=== PATIENT | male | born 1985 | race Caucasian/White ===

== ENCOUNTER 2022-03-13 23:36 | Inpatient (IN) | payer OTHER, SELFPAY ==
--- NOTE | 2022-03-13 | ECG_ITS ---
Test Reason : chest pain Blood Pressure : / mmHG Vent. Rate : 063 BPM Atrial Rate : 063 BPM P-R Int : 136 ms QRS Dur : 100 ms QT Int : 402 ms P-R-T Axes : 071 081 072 degrees QTc Int : 411 ms Normal sinus rhythm Normal ECG When compared with ECG of 08-MAY-2020 13:01, No significant change was found Referred By: Generic ED Physician Electronically Signed By:MORIAH YU
--- NOTE | ~2022-03-13 | CT_ITS ---
EXAMINATION: CT ABDOMEN AND PELVIS WITH CONTRAST COMPARISON: CT abdomen pelvis without contrast 03/14/2022 at 1:13 AM CLINICAL INDICATION: Intussusception TECHNIQUE: Multidetector volumetric images were obtained from the superior aspect of the liver through the pubic symphysis following administration 85 mL of Omnipaque 350 intravenous contrast. Sagittal and coronal reformatted images were obtained on the technologist's workstation. Oral contrast: No This CT examination was performed using dose optimization techniques as appropriate, variously including the following: *Automated exposure control *Adjustment of mA and/or kV according to patient size (this includes techniques or standardized protocols for targeted exams where dose is matched to indication/reason for exam; i.e. extremities or head) *Use of iterative reconstruction technique DLP: 446 mGy-cm FINDINGS: LUNG BASES: The visualized lung bases are unremarkable. LIVER, GALLBLADDER, AND BILIARY TREE: The liver is normal in size, shape, and attenuation. No focal hepatic lesion or biliary ductal dilatation is present. The gallbladder is unremarkable with no evidence of radiopaque gallstones, gallbladder wall thickening, or obvious pericholecystic inflammatory changes. PANCREAS: Unremarkable. SPLEEN: Unremarkable. ADRENAL GLANDS: Unremarkable. KIDNEYS AND URETERS: The kidneys are normal in size, shape, and attenuation. No hydronephrosis, hydroureter, or calculi seen. No perinephric stranding. BLADDER: Unremarkable. GASTROINTESTINAL TRACT: The small and large bowel are unremarkable. The is no evidence of appendicitis. ABDOMINAL WALL: No significant hernia is appreciated. There is a tiny left inguinal hernia containing only fat. LYMPH NODES: No retroperitoneal lymphadenopathy. VASCULAR: Unremarkable. PELVIC VISCERA: Unremarkable. OSSEOUS STRUCTURES: Unremarkable. CT/CT abdomen pelvis w con IMPRESSION: No evidence of an intussusception or bowel obstruction. Fleischner guidelines were followed.
--- NOTE | ~2022-03-13 | CT_ITS ---
EXAMINATION: CT ABDOMEN AND PELVIS WITHOUT CONTRAST CLINICAL INFORMATION: Left upper abdominal pain COMPARISON: None TECHNIQUE: Multidetector volumetric imaging was performed from the superior aspect of the liver through the pubic symphysis. Sagittal and coronal reformatted images were obtained on the technologist's workstation. This CT examination was performed using dose optimization techniques as appropriate, variously including the following: *Automated exposure control *Adjustment of mA and/or kV according to patient size (this includes techniques or standardized protocols for targeted exams where dose is matched to indication/reason for exam; i.e. extremities or head) *Use of iterative reconstruction technique DLP: 445 mGy-cm FINDINGS: LUNG BASES: The visualized lung bases are unremarkable. LIVER, GALLBLADDER, AND BILIARY TREE: The liver is normal in size, shape, and attenuation. No focal hepatic lesion or biliary ductal dilatation is present. The gallbladder is unremarkable with no evidence of radiopaque gallstones, gallbladder wall thickening, or obvious pericholecystic inflammatory changes. PANCREAS: Unremarkable. SPLEEN: Lobulated contour of the spleen which is normal in size. ADRENAL GLANDS: Unremarkable. KIDNEYS AND URETERS: The kidneys are normal in size, shape, and attenuation. No hydronephrosis, hydroureter, or calculi seen. No perinephric stranding. BLADDER: Partially distended without wall thickening or focal abnormality. GASTROINTESTINAL TRACT: The stomach is unremarkable. Normal caliber of the small bowel. No obstruction. Possible small bowel small bowel intussusception in the left midabdomen. Lack of IV contrast and oral contrast limits this evaluation. Normal appendix. No colonic wall thickening or inflammatory change. No free air or free fluid. ABDOMINAL WALL: No significant hernia is appreciated. LYMPH NODES: Normal. VASCULAR: Unremarkable. PELVIC VISCERA: The prostate and seminal vesicles are unremarkable. OSSEOUS STRUCTURES: No acute or suspicious osseous abnormality. CT/CT abdomen pelvis wo con IMPRESSION: Questionable small bowel small bowel intussusception in the left midabdomen. No obstruction. No inflammatory changes. Fleischner guidelines were followed.
[2022-03-13 23:43] VITALS: BP 111/69; PULSE 79; RESP 16; TEMP 36.8; O2SAT 97; BMI 23.0
[2022-03-13 23:59] LABS: Basophils Percent Auto 0.4 % (0-2); Eosinophils Absolute Auto 0.2 X10*3/uL (0.0-0.4); Hematocrit 38.6 % (42.0-52.0); Hemoglobin 13.5 g/dl (14.0-18.0); Imm Gran Abs Auto 0.02 X10*3/uL (0.00-0.03); Imm Gran Pct Auto 0.2 % (0.0-0.4); Lymphocytes Absolute Auto 2.8 X10*3/uL (1.2-4.9); Lymphocytes Percent Auto 26.9 % (20-40); MANUAL DIFF FLAG NO; Mean Corpuscular Hemoglobin 30.3 pg (27.0-33.0); Mean Corpuscular Volume 86.5 fL (80.0-98.0); Mean Platelet Volume 10.5 fL (9.4-12.4); Monocytes Absolute Auto 0.7 X10*3/uL (0.1-1.2); Neutrophils Absolute Auto 6.6 x10*3/uL (2.0-8.3); Neutrophils Percent Auto 63.5 % (45-73); Platelet Count 233 X10*3/uL (160-400); Red Blood Count 4.46 X10*6/uL (4.60-5.80); Red Cell Distribution Width 12.2 % (11.0-16.0); White Blood Count 10.4 X10*3/uL (4.8-10.8)
[2022-03-14 00:19] LABS: Alanine Aminotransferase 19 U/L (0-40); Albumin Level 4.5 g/dL (3.5-5.0); Alkaline Phosphatase 49 U/L (39-117); Anion Gap 13 (12-20); Aspartate Amino Transferase 21 U/L (5-37); Bilirubin Total 0.5 mg/dL (0.0-1.0); Blood Urea Nitrogen 11 mg/dL (9-16); Calcium 9.2 mg/dL (8.4-10.2); Carbon Dioxide 24 mmol/L (22-29); Chloride 105 mmol/L (96-108); Estimated Glomerular Filt Rate > 60; Glucose Random 84 mg/dL (60-115); Sodium 138 mmol/L (135-145); Total Protein 6.7 g/dL (6.5-8.0)
[2022-03-14 00:25] LABS: Troponin-I High Sensitivity < 3.5 ng/L (<3.5-35.0)
--- NOTE | 2022-03-14 00:29 | ED_ITS ---
HPI - Chest Pain General Chief Complaint: Chest Pain Stated Complaint: chest pain Time Seen by Provider: 03/14/22 00:29 Source: patient Mode of arrival: ambulatory Limitations: no limitations History of Present Illness HPI narrative: Patient with healthy with history of ADHD was playing golf today, no chest pain or palpitation came home rested around 06:00 o'clock noticed pain in the interscapular area in left upper abdominal area and of deep dull pain no relation with breathing or movements no urinary complaints no history of kidney stone patient had normal bowels no nausea no vomiting Related Data Allergies Allergy/AdvReac Type Severity Reaction Status Date / Time No Known Allergies Allergy Unverified 06/03/20 16:33 [No Known Allergies*] Review of Systems Review of Systems: Yes all other systems are reviewed and are negative [facility] Social History Social History Advance Directives: No Physical Exam Vital Signs: Vital Signs: Last Vital Signs Temp 98.3 F 03/13/22 23:43 Pulse 79 03/13/22 23:43 Resp 16 03/13/22 23:43 BP 111/69 03/13/22 23:43 Pulse Ox 97 03/13/22 23:43 O2 Del Method 03/13/22 23:43 BMI result Body Mass Index 23.0 Appearance: Alert. Oriented X3. No acute distress. Eyes: PERRLA, No Nystagmus ENT: Pharynx normal. Oral Mucosa moist Neck: Normal inspection. Neck supple. CVS: Normal heart rate and rhythm. Pulses normal. Respiratory: No respiratory distress. Equal air entry bilateral, no wheezing/rales/rhonchi Abdomen: Soft, tender to touch and left upper quadrant no rebound tenderness + guarding Bowel sounds are present, no mass palpable, no CVA tenderness Skin: Skin warm and dry. Normal skin color. Normal skin turgor. Extremities: No lower extremity edema. No calf tenderness Neuro: Oriented X 3. No motor deficit. MDM - Chest Pain MDM Narrative Medical decision making narrative: Patient pain likely muscular will check the UA CT scan of the abdomen to rule out any nephrolithiasis patient is right-handed but this mostly pain is on the left side 150am: CT scan shows intussusception in the left upper quadrant small bowel to small bowel. Will call surgeon for admission at this time patient is not throwing up and not nauseated Case discussed with Dr. Mccoy will admit for observation Differential Diagnosis Differential diagnosis: Likely pneumothorax and stable angina Lab Data Attestation: I reviewed the patient's lab results. Result diagrams: 03/13/22 23:55 03/13/22 23:55 Labs: Lab Results 03/13/22 03/13/22 03/13/22 Range/Units 23:55 23:55 23:55 WBC 10.4 (4.8-10.8) X10*3/uL RBC 4.46 L (4.60-5.80) X10*6/uL Hgb 13.5 L (14.0-18.0) g/dl Hct 38.6 L (42.0-52.0) % MCV 86.5 (80.0-98.0) fL MCH 30.3 (27.0-33.0) pg MCHC 35.0 (31.0-36.0) g/dl RDW 12.2 (11.0-16.0) % Plt Count 233 (160-400) X10*3/uL MPV 10.5 (9.4-12.4) fL Immature Gran % (Auto) 0.2 (0.0-0.4) % Neut % (Auto) 63.5 (45-73) % Lymph % (Auto) 26.9 (20-40) % [place] % (Auto) 7.0 (2-11) % Eos % (Auto) 2.0 (0-4) % Baso % (Auto) 0.4 (0-2) % Lymph # (Auto) 2.8 (1.2-4.9) X10*3/uL [place] # (Auto) 0.7 (0.1-1.2) X10*3/uL Eos # (Auto) 0.2 (0.0-0.4) X10*3/uL Baso # (Auto) 0.0 (0.0-0.2) X10*3/uL Abs Immat Gran (auto) 0.02 (0.00-0.03) X10*3/uL Absolute Neuts (auto) 6.6 (2.0-8.3) x10*3/uL Absolute Nucleated RBC 0.000 (0.0-0.012) X10*3/uL Nucleated RBC % (auto) 0.0 (0.0-0.2) /100WBC Sodium 138 (135-145) mmol/L Potassium 4.0 (3.3-5.1) mmol/L Chloride 105 (96-108) mmol/L Carbon Dioxide 24 (22-29) mmol/L Anion Gap 13 (12-20) BUN 11 (9-16) mg/dL Creatinine 1.05 (0.5-1.4) mg/dL Estim Creat Clear Calc 107.0 Estimated GFR > 60 Random Glucose 84 (60-115) mg/dL Calcium 9.2 (8.4-10.2) mg/dL Total Bilirubin 0.5 (0.0-1.0) mg/dL AST 21 (5-37) U/L ALT 19 (0-40) U/L Alkaline Phosphatase 49 (39-117) U/L Troponin I High Sens < 3.5 (<3.5-35.0) ng/L Total Protein 6.7 (6.5-8.0) g/dL Albumin 4.5 (3.5-5.0) g/dL Urine Color Urine Appearance Urine pH (5.0-8.0) Ur Specific [place] (1.005-1.025) Urine Protein (NEG-TRACE) MG/DL Urine Glucose (UA) (NEG) MG/DL Urine Ketones (NEG) MG/DL Urine Blood (NEG) Urine Nitrite (NEG) Ur Leukocyte Esterase (NEG) 03/14/22 Range/Units 01:07 WBC (4.8-10.8) X10*3/uL RBC (4.60-5.80) X10*6/uL Hgb (14.0-18.0) g/dl Hct (42.0-52.0) % MCV (80.0-98.0) fL MCH (27.0-33.0) pg MCHC (31.0-36.0) g/dl RDW (11.0-16.0) % Plt Count (160-400) X10*3/uL MPV (9.4-12.4) fL Immature Gran % (Auto) (0.0-0.4) % Neut % (Auto) (45-73) % Lymph % (Auto) (20-40) % [place] % (Auto) (2-11) % Eos % (Auto) (0-4) % Baso % (Auto) (0-2) % Lymph # (Auto) (1.2-4.9) X10*3/uL [place] # (Auto) (0.1-1.2) X10*3/uL Eos # (Auto) (0.0-0.4) X10*3/uL Baso # (Auto) (0.0-0.2) X10*3/uL Abs Immat Gran (auto) (0.00-0.03) X10*3/uL Absolute Neuts (auto) (2.0-8.3) x10*3/uL Absolute Nucleated RBC (0.0-0.012) X10*3/uL Nucleated RBC % (auto) (0.0-0.2) /100WBC Sodium (135-145) mmol/L Potassium (3.3-5.1) mmol/L Chloride (96-108) mmol/L Carbon Dioxide (22-29) mmol/L Anion Gap (12-20) BUN (9-16) mg/dL Creatinine (0.5-1.4) mg/dL Estim Creat Clear Calc Estimated GFR Random Glucose (60-115) mg/dL Calcium (8.4-10.2) mg/dL Total Bilirubin (0.0-1.0) mg/dL AST (5-37) U/L ALT (0-40) U/L Alkaline Phosphatase (39-117) U/L Troponin I High Sens (<3.5-35.0) ng/L Total Protein (6.5-8.0) g/dL Albumin (3.5-5.0) g/dL Urine Color YELLOW Urine Appearance CLEAR Urine pH 6.0 (5.0-8.0) Ur Specific [place] 1.020 (1.005-1.025) Urine Protein NEG (NEG-TRACE) MG/DL Urine Glucose (UA) NEG (NEG) MG/DL Urine Ketones 5 (NEG) MG/DL Urine Blood NEG (NEG) Urine Nitrite NEG (NEG) Ur Leukocyte Esterase NEG (NEG) Discharge Plan Discharge Clinical Impression: Intussusception intestine Patient Disposition: Admitted As Inpatient
[2022-03-14 01:14] LABS: Appearance Urine CLEAR; Color Urine YELLOW; Glucose Urine UA NEG (NEG); Leukocyte Esterase Urine NEG (NEG); Nitrite Urine NEG (NEG); Urine Blood NEG (NEG); Urine Ketones 5 MG/DL (NEG); Urine Protein NEG (NEG-TRACE)
[2022-03-14 02:09] VITALS: BP 111/66; PULSE 57; RESP 9; TEMP 36.5; O2SAT 100
[2022-03-14] MEDS: 0.9 % Sodium Chloride 1,000 ML 999 ML IV (02:53)
[2022-03-14 03:00] LABS: COVID-19 Test Negative (Negative)
[2022-03-14] MEDS: Dextrose 5 % and Lactated Ring 1,000 ML 125 ML IVCONT ×2 (03:56→10:25)
[2022-03-14 05:15] VITALS: BP 102/59; PULSE 76; RESP 13; TEMP 36.6; O2SAT 99
--- NOTE | 2022-03-14 07:02 | PC.NURSE ---
report given to JULIETTE Contreras
--- NOTE | 2022-03-14 07:34 | PM.HPGS ---
History of Present Illness History of Present Illness Date of Service: 03/14/22 Chief complaint: Intussusception Small Intestine Narrative: Kishore Arreola is a 37 year old male presenting with complaints of abdominal pain in the left upper quadrant and lower left chest which began while playing golf yesterday afternoon. He reports several milder episodes over the past several years for which he sought medical attention but never received the diagnosis. He initially thought he was having a heart attack due to his smoking history and family history of coronary artery disease. He went home after playing golf and continued to have increased pain and subsequently presented to the emergency department. He denied nausea, vomiting, fever, chills did have some shortness of breath and pleuritic pain. He denies diarrhea or constipation. In the emergency department he was noted to be tender in the left upper quadrant. Laboratories revealed a normal WBC, normal troponins, and normal liver function tests. EKG revealed normal sinus rhythm unchanged from previous studies. CT of the abdomen and pelvis raise a concern of an intussusception with small-bowel into the small bowel. Review of Systems Review of Systems: Yes all other systems are reviewed and are negative Cardiovascular: Cardiovascular: Reports chest pain, Denies irregular heart rhythm, Denies palpitations and Reports dyspnea on exertion Respiratory: Respiratory: Denies cough, Denies hemoptysis, Reports pain on inspiration and Reports dyspnea on exertion Gastrointestinal: Gastrointestinal: Reports as per HPI, Reports abdominal pain, Denies constipation, Denies dyspepsia, Denies diarrhea, Denies nausea and Denies vomiting Endocrine: Endocrine: Denies palpitations PMFSH Past Medical History Medical History (Updated 03/14/22 @ 07:39 by Juventino Mccoy MD) ADHD Social History Social History Advance Directives: No Meds Allergies Allergy/AdvReac Type Severity Reaction Status Date / Time No Known Allergies Allergy Unverified 06/03/20 16:33 [No Known Allergies*] Active Medications: Current Medications Hydromorphone HCl (Hydromorphone Hcl 1 Mg/Ml Syringe) 0.5 mg IVPUSH Q4H PRN; Protocol PRN Reason: Pain, Severe (Pain Scale 7-10) Dextrose/Lactated Ringer's (D5lr) 1,000 mls @ 125 mls/hr IVCONT .Q8H KAYY Last Admin: 03/14/22 03:56 Dose: 125 mls/hr Ondansetron HCl (Ondansetron Hcl 4 Mg/2 Ml Vial) 4 mg IVPUSH QID PRN PRN Reason: Nausea Oxycodone HCl (Oxycodone Hcl Immed Release 5 Mg Tablet) 5 mg PO Q6H PRN PRN Reason: Pain, Moderate (Pain Scale 4-6 Pharmacy Consult (Consult Rx Perform Med Rec) 1 each MISCELLANE ONCE PRN PRN Reason: Consult order Sodium Chloride (0.9 % Sodium Chloride Flush 3 Ml Syringe) 3 ml IVFLUSH QSHIFT [facility] Zolpidem Tartrate (Zolpidem Tartrate 5 Mg Tablet) 5 mg PO BEDTIME PRN PRN Reason: Insomnia Home Medications Medication Instructions Recorded Confirmed Last Taken Type bupropion HCl 150 mg 24 hr tablet, 1 tab PO DAILY 03/14/22 03/14/22 Unknown History extended release bupropion HCl 300 mg 24 hr tablet, 1 tab PO DAILY 03/14/22 03/14/22 Unknown History extended release dextroamphetamine-amphetamine ER 1 cap PO DAILY 03/14/22 03/14/22 Unknown History 10 mg 24hr capsule,extend release (Adderall XR) Physical Exam Vital Signs: Vital Signs: Last Vital Signs Temp 97.9 F 03/14/22 05:15 Pulse 76 03/14/22 05:15 Resp 13 03/14/22 05:15 BP 102/59 L 03/14/22 05:15 Pulse Ox 99 03/14/22 05:15 O2 Del Method 03/14/22 05:15 BMI result Body Mass Index 23.0 Const: General: cooperative and no acute distress Nutritional Appearance: well nourished Orientation/consciousness: patient oriented x3 Limitations: no limitations HEENT: Head: Yes normocephalic and Yes atraumatic Ears: hearing grossly normal bilaterally Neck: Neck: Yes full ROM, Yes trachea midline and Yes no JVD Resp: Effort & Inspection: normal respiratory effort Auscultation: clear to auscultation bilaterally GI: Inspection: Yes normal to inspection Palpation (GI): Soft to palpation, Tenderness to palpation present (GI) in the LUQ; Kumari's sign negative and with no rebound tenderness, no guarding and not rigid Percussion: Yes normal to percussion Auscultation: normal bowel sounds Rectal Exam - Male: Yes deferred Abdomen image: 1. Area of maximal tenderness left upper quadrant Skin: General skin exam: no rashes or lesions noted Neuro: General: patient oriented x3 Extrem: General: Yes no clubbing, cyanosis or edema Results Results Labs: Short CBC 03/13/22 Range/Units 23:55 WBC 10.4 (4.8-10.8) X10*3/uL Hgb 13.5 L (14.0-18.0) g/dl Hct 38.6 L (42.0-52.0) % Plt Count 233 (160-400) X10*3/uL BMP 03/13/22 23:55 Sodium 138 Potassium 4.0 Chloride 105 Carbon Dioxide 24 BUN 11 Creatinine 1.05 Calcium 9.2 Liver Function 03/13/22 Range/Units 23:55 Total Bilirubin 0.5 (0.0-1.0) mg/dL AST 21 (5-37) U/L ALT 19 (0-40) U/L Alkaline Phosphatase 49 (39-117) U/L Albumin 4.5 (3.5-5.0) g/dL Urine 03/14/22 Range/Units 01:07 Urine Color YELLOW Urine Appearance CLEAR Urine pH 6.0 (5.0-8.0) Ur Specific [place] 1.020 (1.005-1.025) Urine Protein NEG (NEG-TRACE) MG/DL Urine Glucose (UA) NEG (NEG) MG/DL Abdomen CT scan report/results: image reviewed CT scan - pelvis: image reviewed Assessment and Plan (1) Intussusception intestine: Status: Acute Plan 37-year-old male patient presenting with recent onset of abdominal pain in the left upper quadrant extending into the left lower chest. Pain persists this morning but is somewhat improved overall. He denies nausea, vomiting, diarrhea or constipation. CT abdomen and pelvis without contrast suggests small-bowel intussusception corresponding to the left upper quadrant. I recommended a contrast CT to better evaluate this area and determine need for surgical exploration. Expressed understanding and agrees with the plan. Quality Stroke Does the patient have a stroke diagnosis?: No VTE Prior VTE?: No VTE Risk Level:: Surgical - low VTE Device Contraindication: N/A - Device Ordered VTE Drug Contraindication: Treatment Not Indicated Procedures Date of Service Date of Service: 03/14/22
[2022-03-14 09:43] VITALS: BP 112/56; PULSE 51; RESP 11; O2SAT 99
--- NOTE | 2022-03-14 09:51 | MHC.CM.PN ---
PT REPORTS HE LIVES WITH HIS S/O, [place] PT REPORTS HE IS FULLY INDEPENDENT, HAS NO SERVICES AND NO DME PT SAYS HE IS COVID VACCINATED, NOT BOOSTED PT WILL COMPLETE A HCP TODAY NAMING HIS S/O HIS AGENT PT DOES NOT KNOW THE NAME OF HIS PCP BUT GOES TO [facility] ([facility] LOCATION) CURRENT DC PLAN IS HOME NO SERVICES PT WILL DRIVE HIMSELF
--- NOTE | 2022-03-14 10:06 | PHA.MEDREC ---
Pharmacy Consult ? Medication Reconciliation Pharmacy has completed the medication reconciliation.
[2022-03-14 10:26] VITALS: BP 112/56; PULSE 68; RESP 12
--- NOTE | 2022-03-14 10:30 | PC.NURSE ---
Pt alert and oriented x4. Resting comfortably, NSR at [address] on the monitor. Await[address] CT scan at this time IV fluids running.
[2022-03-14] MEDS: iohexoL 350 MG/ML 100 ML INFUS..BTL IV (11:52)
[2022-03-14 15:44] VITALS: BP 112/46; PULSE 62; RESP 15; TEMP 37; O2SAT 99
--- NOTE | 2022-03-14 16:15 | PM.EVENT ---
Event Note Date of Service: 03/14/22 Event Note: CT abdomen pelvis reviewed. Contrast noted in colon with no evidence of obstruction. Awaiting radiology read. Patient re-evaluated and he reports no abdominal pain at this time. He is hungry and would like to try some food. I will advance him to a regular diet. If he tolerates a regular diet without increased abdominal pain, he may be able to be discharged to home.
--- NOTE | 2022-03-14 16:41 | PC.NURSE ---
Pt no longer NPO per Dr Mccoy. Provided with water and crackers
--- NOTE | 2022-03-14 17:13 | P.DS_ITS ---
DS: Providers Provider Date of Service: 03/14/22 Date of admission: 03/14/22 02:09 Date of discharge: 03/14/22 Primary care physician: Unknown Physician Admitting clinician: Juventino Mccoy Discharging clinician: Juventino Mccoy DS: Diagnosis Discharge Diagnosis (1) Intussusception intestine: Status: Acute DS: Summary Hospital Course Hospital Course: Kishore Arreola is a 37 year old male presenting with complaints of abdominal pain in the left upper quadrant and lower left chest which began while playing golf yesterday afternoon.? He reports several milder episodes over the past several years for which he sought medical attention but never received the diagnosis.? He initially thought he was having a heart attack due to his smoking history and family history of coronary artery disease.? He went home after playing golf and continued to have increased pain and subsequently presented to the emergency department. ? He denied nausea, vomiting, fever, chills did have some shortness of breath and pleuritic pain.? He denies diarrhea or constipation.? In the emergency department he was noted to be tender in the left upper quadrant.? Laboratories revealed a normal WBC, normal troponins, and normal liver function tests. EKG revealed normal sinus rhythm unchanged from previous studies.? CT of the abdomen and pelvis raise a concern of an intussusception with small-bowel into the small bowel.? The patient was admitted to the surgical service with a diagnosis of intussusception of the small bowel. He was made NPO and started on IV fluids. He was evaluated on the morning of 03/14/2022 and found to have some mild tenderness in the left upper quadrant but generally his abdomen was soft and nondistended. He denied any nausea, vomiting, fever or chills since admission. Decision was made to repeat the CT with oral and IV contrast. This was performed on 03/14/2022 and revealed contrast extending into the colon without evidence of obstruction or intussusception. Patient was subsequently started on regular diet. He tolerated this well and was allowed to be discharged to home. Patient may resume normal activity and normal diet. He should follow up in the office in approximately 1 week for follow-up examination. Time spent discussing smoking cessation with patient: 3 to 10 minutes Status at Discharge Functional status at discharge: independent ambulation Overall status at discharge: patient is back to baseline Time Spent with Patient Time attestation: Total time spent providing and/or coordinating discharge services: Discharge coordination time: Less than 30 minutes Quality: Safe Use of Opioids Does Pt have an Active Cancer Diagnosis on the Problem List?: No Quality: Stroke Does the patient have a stroke diagnosis?: No Physical Exam Vital Signs: Vital Signs: Last Vital Signs Temp 98.6 F 03/14/22 15:44 Pulse 62 03/14/22 15:44 Resp 15 03/14/22 15:44 BP 112/46 L 03/14/22 15:44 Pulse Ox 99 03/14/22 15:44 O2 Del Method 03/14/22 15:44 BMI result Body Mass Index 23.0 Const: General: comfortable, no acute distress and well developed Nutritional Appearance: well nourished Orientation/consciousness: patient oriented x3 Limitations: no limitations Resp: Effort & Inspection: normal respiratory effort, no audible wheezes, no cough and no respiratory distress GI: Inspection: Yes normal to inspection Palpation (GI): Soft to palpation, nontender, no guarding and not rigid Percussion: Yes normal to percussion Auscultation: normal bowel sounds Skin: General skin exam: no rashes or lesions noted Neuro: General: patient oriented x3 Extrem: General: Yes no clubbing, cyanosis or edema DS: Data Data Completed and Pending Labs on day of discharge: Laboratory Results - last 24 hr 03/13/22 03/13/22 03/13/22 23:55 23:55 23:55 WBC 10.4 RBC 4.46 L Hgb 13.5 L Hct 38.6 L MCV 86.5 MCH 30.3 MCHC 35.0 RDW 12.2 Plt Count 233 MPV 10.5 Immature Gran % (Auto) 0.2 Neut % (Auto) 63.5 Lymph % (Auto) 26.9 [place] % (Auto) 7.0 Eos % (Auto) 2.0 Baso % (Auto) 0.4 Lymph # (Auto) 2.8 [place] # (Auto) 0.7 Eos # (Auto) 0.2 Baso # (Auto) 0.0 Abs Immat Gran (auto) 0.02 Absolute Neuts (auto) 6.6 Absolute Nucleated RBC 0.000 Nucleated RBC % (auto) 0.0 Sodium 138 Potassium 4.0 Chloride 105 Carbon Dioxide 24 Anion Gap 13 BUN 11 Creatinine 1.05 Estim Creat Clear Calc 107.0 Estimated GFR > 60 Random Glucose 84 Calcium 9.2 Total Bilirubin 0.5 AST 21 ALT 19 Alkaline Phosphatase 49 Troponin I High Sens < 3.5 Total Protein 6.7 Albumin 4.5 Urine Color Urine Appearance Urine pH Ur Specific [place] Urine Protein Urine Glucose (UA) Urine Ketones Urine Blood Urine Nitrite Ur Leukocyte Esterase COVID-19 ([facility]) COVID-19 Clin Com 03/14/22 03/14/22 01:07 02:28 WBC RBC Hgb Hct MCV MCH MCHC RDW Plt Count MPV Immature Gran % (Auto) Neut % (Auto) Lymph % (Auto) [place] % (Auto) Eos % (Auto) Baso % (Auto) Lymph # (Auto) [place] # (Auto) Eos # (Auto) Baso # (Auto) Abs Immat Gran (auto) Absolute Neuts (auto) Absolute Nucleated RBC Nucleated RBC % (auto) Sodium Potassium Chloride Carbon Dioxide Anion Gap BUN Creatinine Estim Creat Clear Calc Estimated GFR Random Glucose Calcium Total Bilirubin AST ALT Alkaline Phosphatase Troponin I High Sens Total Protein Albumin Urine Color YELLOW Urine Appearance CLEAR Urine pH 6.0 Ur Specific [place] 1.020 Urine Protein NEG Urine Glucose (UA) NEG Urine Ketones 5 Urine Blood NEG Urine Nitrite NEG Ur Leukocyte Esterase NEG COVID-19 ([facility]) Negative COVID-19 Clin Com See Note Imaging CT scan - abdomen: Radiologist's impression: ITS Impressions Abdomen/Pelvis CT 03/14/22 00:58 IMPRESSION: Questionable small bowel small bowel intussusception in the left midabdomen. No obstruction. No inflammatory changes. Fleischner guidelines were followed. Abdomen/Pelvis CT 03/14/22 12:00 IMPRESSION: No evidence of an intussusception or bowel obstruction. Fleischner guidelines were followed. Discharge Plan Discharge Patient Disposition: Home, Self-Care Discharge Diagnosis: Abdominal pain left upper quadrant Referrals: Juventino Mccoy MD [Physician] - 1 Week PhysicianChasidy [Primary Care Provider] - 1 Week Discharge Medications: Continued dextroamphetamine-amphetamine [Adderall XR] 10 mg capsule,extended release 24hr 1 cap PO DAILY bupropion HCl 300 mg tablet extended release 24 hr 1 tab PO DAILY Discharge Orders: Discharge Order (Routine); Ordered 03/14/22 Ordered By: Juventino Mccoy Activity on Discharge: As tolerated Stand Alone Forms: Patient Portal Discharge page Care Plan Goals: Return to normal diet and activity without abdominal pain Health Concerns: Abdominal pain in the left upper abdomen Plan of Treatment: Bowel rest, IV hydration Assessment: Intussuception of small intestine Discharge Date/Time: 03/14/22 17:26
== END 2022-03-14 17:26 | disposition home or self-care (01) | DRG 390 ==
LOC: HO.ED 03-14 01:53 → HO.EDOVER 03-14 02:29
PROVIDERS: Admitting Provider Surgery; Emergency Provider Internal Medicine; PCP Nurse Practitioner Adult Health; Visit Provider Surgery
DX: K56.1 Intussusception (principal); F90.9 Attention-deficit hyperactivity disorder, unspecified type; F17.210 Nicotine dependence, cigarettes, uncomplicated; Z20.822 Contact with and (suspected) exposure to COVID-19; Z71.6 Tobacco abuse counseling; Z79.899 Other long term (current) drug therapy
CPT/HCPCS: 36415; 74176; 74177; 80053; 81003; 84484; 85025; 87635; 93005; 96361; 96374; 96375; 99218; 99284; 99285; Q9967